=== PATIENT | male | born 1975 | race Caucasian/White ===

== ENCOUNTER 2023-01-21 08:53 | Day surgery (SDC) | payer BC ==
[2023-01-21] VITALS (10 sets, daily range): BP systolic 125–199; BP diastolic 81–130
[~2023-01-21] VITALS: Ht 188 cm; Wt 172.8 kg
[2023-01-21] MEDS ORDERED: OLMESARTAN-HCT1 EAC5 (09:37)
--- NOTE | 2023-01-21 09:42 | NUR ---
Ambulatory in Day Surgery Patient confirms NPO status and agrees with scheduled surgery. History, Chart, Medications and Allergies reviewed before start of procedure.Pre-Op teaching done. Pt verbalizes understanding. Patient States Post-Procedure ride home has been arranged.
--- NOTE | 2023-01-21 14:06 | NUR ---
Discharge instructions reviewed with patient. Patient verbalizes understanding. Copy given to patient to take home. Dressing to procedure site clean, dry, intact with no visible drainage, swelling, erythema or bruising noted. Discharged via wheelchair to private car for ride home.
== END 2023-01-21 14:07 | disposition home or self-care (01) ==
LOC: ORSCMMR 08:53 → ORD 10:15 → ORSCMMR 10:15
PROVIDERS: Surgery
PROC: 0JBC0ZX Excision of Pelvic Region Subcutaneous Tissue and Fascia, Open Approach, Diagnostic (ICD-10-PCS; principal; 2023-01-21 10:15)
DX: D17.1 Benign lipomatous neoplasm of skin and subcutaneous tissue of trunk (principal); I10 Essential (primary) hypertension; G47.33 Obstructive sleep apnea (adult) (pediatric); Z79.899 Other long term (current) drug therapy; E66.01 Morbid (severe) obesity due to excess calories; Z68.43 Body mass index [BMI] 50.0-59.9, adult
CPT/HCPCS: 88305; 88374; J0330; J0690; J1100; J1885; J2250; J2405; J2704; J3010; J7120